=== PATIENT | female | born 1945 | race Caucasian/White ===

== ENCOUNTER → 2016-08-13 | Day surgery (SDC) | payer OTHER, MEDICARE ==
[~2016-08-13] VITALS: Ht 158.8 cm; Wt 77.1 kg
[~2016-08-13] MED LIST: ASPI1TAB24 PO; ATOR1TAB21 PO; BACITRACIN PWD 50,000 UNITS VIAL IR ONE; LEVO50TA5 PO; LIDOCAINE 2% INJ 100 MG/5 ML SDV (FOR ANES.) As Ordered ONE; LR 1,000 ML IV ONE; METF500T PO; MIDAZOLAM INJ 2 MG/2 ML VIAL (J2250) As Ordered ONE; NEOSPORIN GU IRRIG 20 ML VIAL IR ONE; NITR100C37 PO; POLYPOW9 PO; PROPOFOL 200 MG/20 ML VIAL As Ordered ONE; PROPOFOL 500 MG/50 ML VIAL As Ordered ONE; TOPA25TA10 PO; TRAZ50TA4 PO; VENL75TA2 PO; dexameTHASONE 4 MG/ML 1ML VIAL (J1100) As Ordered ONE; fentaNYL 100 MCG/2 ML INJECTION (J3010) As Ordered ONE
[2016-08-13] MEDS: LIDOCAINE 2% MDV 20 ML VIAL As Ordered ONE (11:19)
[2016-08-13] MEDS: BUPIVACAINE HCL 0.5% 30 ML VIAL As Ordered ONE (11:19)
--- NOTE | 2016-08-13 15:16 | REP ---
RIGHT FOOT, FOUR VIEWS: HISTORY: Bunionectomy. A cast is present obscuring bone detail. The patient is status post arthrodesis of the medial cuneiform 1st metatarsal joint space. A fixation plate and metal screws are present. The patient is status post arthrodesis of the second intermediate joint space. A metal screw is present. The patient appears to be status post osteotomy of the distal 2nd metatarsal. A metal screw is present. There is anatomic alignment through plaster. IMPRESSION: Postoperative change as described above. Signed by Pablo Yuan MD 08/13/2016 03:34 P
[2016-08-13 16:00] VITALS: BP 174/80
--- NOTE | 2016-08-13 23:05 | RO ---
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 Long 2nd metatarsal right foot. 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 Hammer toe deformity 5th toe right foot. 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 Long 2nd metatarsal right foot. 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 Hammer toe deformity 5th toe right foot. PROCEDURE: SURGEON: Dr. Stalin Crandall DPM PAINT MIXER MACHINE: None. ANESTHESIA: Local MAC. IRRIGATION: Dilute bacitracin, neomycin and polymyxin B solution. ESTIMATED BLOOD LOSS: Less than 10 mL. HARDWARE UTILIZED: Alcantar LPS size 0 plate with nonlocking screws 3.5 x 14, 3.5 x 18, 2.7 x 14 and 2.7 x 14, cannulated compression screw 3.0 x 36 and a cannulated compression screw 2.5 x 14 and a DigiFuse 2.0 x 10 degree angled. DESCRIPTION OF PROCEDURE: On 08/13/2016, this 71-year-old white female was taken from her hospital room to the operating room and placed on the operating table in the supine position. Following the induction of intravenous (IV) sedation and local and regional anesthesia, the right lower extremity was prepped and draped in the usual aseptic manner. Right lower extremity was elevated 45 degrees from the horizontal plane for the purpose of preoperative exsanguination of the limb. During this 3-minute time period, an ankle pneumatic tourniquet was applied just proximal to the medial and lateral malleolus over well-padded site. To further exsanguinate the limb, a David's Esmarch bandage was placed circumferentially extending from digits to distal edge of the ankle pneumatic tourniquet. Ankle pneumatic tourniquet was rapidly inflated to 200 mmHg for the purpose of intraoperative hemostasis. The tourniquet was up for 96 minutes. Attention was directed to the foot and the following procedure was performed: LAPIDUS BUNIONECTOMY WITH PLATE AND SCREW FIXATION, LPS SIZE 0 PLATE WITH NONLOCKING SCREWS 3.5 x 14, 3.5 x 18, 2.7 x 14, 2.7 x 14 AND A CANNULATED COMPRESSION SCREW 3.0 x 36: Attention was directed to the patient's right foot. There was noted to be a moderately severe hallux valgus deformity. At this time, an incision was made from the mid surface of the medial cuneiform in a serpentine fashion, ending distal to the 1st metatarsophalangeal joint. The incision was deepened through subcutaneous tissues and all coursing venous tributaries were identified, underscored, clamped, cut, ligated and electrocoagulated as necessary. Linear capsulotomy was performed in the same plane as the original skin incision. The capsular and periosteal structures were dissected free in one continuous layer, dorsally, medially and laterally thus creating a capsular periosteal type envelope. The hypertrophied medial eminence was then osteotomized medial to the sesamoidal groove, and this was extirpated from the wound. Attention was directed into the first intermetatarsal space where the conjoined tendon were sharply dissected free from the fibular sesamoid, mobilizing the fibular sesamoid. Attention was then directed to the base of the 1st metatarsocuneiform joint where periosteal dissection exposed the first metatarsocuneiform joint, taking a wedge piece of articular cartilage minimizing cortical bone loss, the joint was removed. Utilizing a 2.0 drill bit, the joint surfaces were fenestrated. The wound was flushed with copious amounts of dilute bacitracin, neomycin and polymyxin B solution. A K-wire was placed across the 1st metatarsocuneiform joint utilizing C-arm to assess reduction and fixation length. Good position was noted and a 3.0 x 36 mm compression screw was inserted. Utilizing a size 0 Lapidus plate, fixation was then obtained along the medial surface with a 3.5 x 14, 3.5 x 18 and a 2.7 x 14 and a 2.7 x 14 nonlocking screws. The fusion site was noted to be stable in all three cardinal planes. The wound was flushed with copious amounts of dilute bacitracin, neomycin and polymyxin B solution. Attention was then directed to the 2nd metatarsal where the following procedure was performed: SHORTENING 2nd METATARSAL OSTEOTOMY WITH INTERNAL SCREW FIXATION: An incision was made from the head of the 2nd metatarsal to approximately 3 cm proximal along the 2nd metatarsal shaft. The extensor tendons were identified and retracted in a lateral direction and a linear capsulotomy was performed. Utilizing a sagittal blade, a Daphnie osteotomy was performed, starting at the articular cartilage, paralleling the plantar surface of the foot. The bone was shortened approximately 5 mm and fixated with a 2.5 x 14 mm compression screw. The osteotomy was noted to be stable in all three cardinal planes. No medial to lateral transposition of the head was performed. Attention was then directed to the 2nd toe where two semi-elliptical incisions were placed over the proximal interphalangeal joint and a wedge-shaped piece of skin was removed. A transverse tenotomy and capsulotomy was performed at the level of the proximal interphalangeal joint. Utilizing a power saw, an osteotomy was performed at the anatomical neck of the proximal phalanx from dorsal to plantar through and through and extirpated from the wound in toto. Cartilage off the middle phalanx was similarly osteotomized from dorsal to plantar. Utilizing a standard technique, a 2.0 x 10 degree angled DigiFuse was placed across the joint. The wound was flushed with copious amounts of dilute bacitracin, neomycin and polymyxin B solution. The extensor tendon was noted to be contracted, and it was released to the level of the metatarsophalangeal joint under the skin margin. This was then repaired with #2-0 braided nylon suture and a four-stranded Kemp core repair. Attention was then directed to the 5th toe where the following procedure was performed: PROXIMAL INTERPHALANGEAL JOINT ARTHROPLASTY 5th TOE RIGHT FOOT: Attention was directed to the patient's 5th toe where two semi-elliptical incisions were placed in a slightly oblique fashion across the 5th toe. A wedge piece of skin was removed, a transverse tenotomy and capsulotomy was then performed at the proximal interphalangeal joint and the medial and lateral collateral ligaments were dissected off the head of the proximal phalanx. Utilizing a power saw, an osteotomy was performed to the anatomical neck of the proximal phalanx from dorsal to plantar, medial to lateral, through and through and this was extirpated from the wound in toto. The wound was flushed with copious amounts of dilute bacitracin, neomycin and polymyxin B solution. The ankle pneumatic tourniquet was then released at 96 minutes and all of the incisions were repaired without tourniquet and any bleeders as encountered were electrocoagulated. Attention was then directed back to the Lapidus bunionectomy where the soaked gauze held over the wound during the other procedures was removed and the wound was closed with #2-0 Monocryl in a simple interrupted fashion. Subcutaneous tissues were coapted and maintained using #4-0 Monocryl in a simple interrupted type fashion. Skin incision was coapted and maintained utilizing #4-0 Monocryl in a simple interrupted and horizontal mattress type fashion. The incision over the 2nd metatarsal was similarly repaired with #2-0 Monocryl, capsular closure in a simple interrupted type fashion. Subcutaneous tissue was coapted and maintained utilizing #4-0 Monocryl in a simple interrupted type fashion. Skin incision was coapted and maintained using #4-0 Prolene in a simple interrupted type fashion. The toe incisions were coapted and maintained with #4-0 Prolene suture in a simple interrupted and horizontal mattress type fashion. Following the completion of the surgical procedure, 4 mg of dexamethasone sodium phosphate was instilled proximal to the surgical site. Attention was directed towards bandaging where a sterile compressive bandage was applied consisting of Adaptic, 4 x 4's, 4 x 4 splints, Mir, Kerlix and Coban. A well-molded fiberglass cast was then applied to the patient's right lower extremity. The patient having apparently tolerated the surgical procedure well was taken from the operating room to the recovery room, vital signs stable, patient afebrile, further monitoring by the anesthesia department. All surgical specimens removed during the operative procedure were sent to Pathology for gross and microscopic examination. Postoperative instructions given upon discharge.
== END | disposition home or self-care (01) ==
LOC: M SDC 09:44
PROVIDERS: ATTEND Podiatrist
DX: M20.11 Hallux valgus (acquired), right foot (principal); M20.61 Acquired deformities of toe(s), unspecified, right foot; M20.41 Other hammer toe(s) (acquired), right foot; M79.671 Pain in right foot; E11.9 Type 2 diabetes mellitus without complications; I10 Essential (primary) hypertension; E78.5 Hyperlipidemia, unspecified; F32.9 Major depressive disorder, single episode, unspecified; Z79.82 Long term (current) use of aspirin; Z79.899 Other long term (current) drug therapy
CPT/HCPCS: 28285; 28297; 28308; 73630; 88300; 97116; C1776; J0690; J1100; J2250; J3010